=== PATIENT | male | born 1955 | race African-American/Black ===

== ENCOUNTER 2017-08-09 16:15 | Emergency (ER) | payer SELFPAY ==
[~2017-08-09] VITALS: Ht 175.3 cm; Wt 85.0 kg
[2017-08-09] MEDS ORDERED: SODIUM CHLORIDE 0.9% 1,000 ML IV ONE (17:34)
[2017-08-09 18:10] LABS: BASOPHILS % 0.4 % (0.0-2.0); EOSINOPHILS % 0.4 % (0.0-5.0); HEMATOCRIT. 43.3 % (42.0-52.0); HEMOGLOBIN. 14.5 g/dL (14.0-18.0); MEAN CORPUSCULAR HEMOGLOBIN 29.3 pg (28.0-32.0); MEAN CORPUSCULAR VOLUME 87.5 fL (80.0-94.0); MEAN PLATELET VOLUME 8.5 fl (7.4-10.4); MONOCYTES % 8.5 % (2.0-8.0); NEUTROPHILS % 80.7 % (40.0-76.0); PLATELET 243 x1000/uL (130-400); RED BLOOD CELL COUNT 4.95 mill/uL (4.7-6.1); RED CELL DISTRIBUTION WIDTH 13.8 % (11.6-14.6)
[2017-08-09 18:17] LABS: INR 1.1; PARTIAL THROMBOPLASTIN TIME 23.1 sec (23.4-31.0); PROTHROMBIN TIME 11.1 sec (9.4-11.6)
[2017-08-09 18:21] LABS: CHLORIDE 104 mEq/L (98-107)
[2017-08-09 18:23] LABS: TROPONIN I < 0.02 ng/mL (0.00-0.04)
[2017-08-09 18:24] LABS: CREATINE KINASE MB FRACTION 1.1 ng/mL (0.5-3.6)
[2017-08-09 20:00] VITALS: BP 126/59
== END 2017-08-09 20:32 | disposition left against medical advice (07) ==
LOC: ER 16:46 → CANBEDREQ 20:12 → ER 20:32
DX: R55 Syncope and collapse (principal); R65.10 Systemic inflammatory response syndrome (SIRS) of non-infectious origin without acute organ dysfunction; N28.9 Disorder of kidney and ureter, unspecified
CPT/HCPCS: 36415; 70450; 71045; 80048; 82553; 82962; 83735; 83880; 84484; 85025; 85610; 85730; 93005; 99285; J7030